=== PATIENT | male | born 1940 | race Caucasian/White ===

== ENCOUNTER → 2016-07-24 | Outpatient (CLI) | payer OTHER | LOC: BMCIMAGING 14:29 | PROVIDERS: ATTEND Internal Medicine | DX: N45.3 Epididymo-orchitis (principal); N43.3 Hydrocele, unspecified; I86.1 Scrotal varices ==

== ENCOUNTER → 2016-08-04 | Outpatient (CLI) | payer OTHER | LOC: BMCIMAGING 13:30 | PROVIDERS: ATTEND Urology | DX: Z87.448 Personal history of other diseases of urinary system (principal); Z87.442 Personal history of urinary calculi ==

== ENCOUNTER → 2017-12-29 | Outpatient (CLI) | payer OTHER ==
[~2017-12-29] MED LIST: IOPAMIDOL (ISOVUE-300) 100 ML BTL ONE
== END ==
LOC: FIMAGING 10:49
PROVIDERS: ATTEND Nurse Practitioner Family
DX: G70.00 Myasthenia gravis without (acute) exacerbation (principal); I31.3 Pericardial effusion (noninflammatory); K76.9 Liver disease, unspecified
CPT/HCPCS: 71260; Q9967; 82565-PO

== ENCOUNTER → 2018-01-19 | Outpatient (CLI) | payer OTHER | LOC: FIMAGING 08:08 | PROVIDERS: ATTEND Nurse Practitioner Family | DX: K76.9 Liver disease, unspecified (principal); Z90.5 Acquired absence of kidney ==